=== PATIENT | female | born 1960 | race Caucasian/White ===

== ENCOUNTER 2018-09-16 07:05 | Emergency (ER) | payer OTHER ==
[~2018-09-16] VITALS: Ht 165.1 cm; Wt 83.5 kg
== END 2018-09-16 12:24 | disposition home or self-care (01) ==
LOC: ER 07:05
DX: J00 Acute nasopharyngitis [common cold] (principal); R50.9 Fever, unspecified

== ENCOUNTER 2022-12-12 05:59 | Emergency (ER) | payer OTHER ==
[~2022-12-12] VITALS: Ht 165.1 cm; Wt 82.6 kg
== END 2022-12-12 16:41 | disposition home or self-care (01) ==
LOC: ER 05:59
DX: K52.9 Noninfective gastroenteritis and colitis, unspecified (principal)